=== PATIENT | male | born 1990 | race Caucasian/White ===

== ENCOUNTER 2017-03-26 19:37 | Emergency (ER) | payer SELFPAY ==
[~2017-03-26] VITALS: Ht 180.3 cm; Wt 77.1 kg
[~2017-03-26 19:37] MED LIST: CEPHALEXIN500 MG PO; NAPROSYN500 MG PO; NORCO 5-325 TA1 EACH PO; PSEUDOEPHEDRINE60 MG PO; ZITHROMAX250 MG PO
[2017-03-26] MEDS ORDERED: NORCO 5-325 TA1 EACH PO (21:22)
[2017-03-26] MEDS ORDERED: NAPROXEN500 MG PO (21:22)
== END 2017-03-26 21:41 | disposition home or self-care (01) ==
LOC: ED 19:37
DX: S29.012A Strain of muscle and tendon of back wall of thorax, initial encounter (principal); F17.200 Nicotine dependence, unspecified, uncomplicated; Z88.1 Allergy status to other antibiotic agents; X58.XXXA Exposure to other specified factors, initial encounter; Y93.44 Activity, trampolining
CPT/HCPCS: 71101; 99283

== ENCOUNTER 2018-01-25 12:59 | Emergency (ER) | payer MEDICAID ==
[~2018-01-25] VITALS: Ht 180.3 cm; Wt 77.1 kg
[~2018-01-25 12:59] MED LIST changes: +NAPROXEN500 MG PO
[2018-01-25] MEDS ORDERED: ZITHROMAX250 MG PO (14:32)
== END 2018-01-25 14:50 | disposition home or self-care (01) ==
LOC: ED 12:59
DX: J02.9 Acute pharyngitis, unspecified (principal); F17.200 Nicotine dependence, unspecified, uncomplicated; Z88.0 Allergy status to penicillin
CPT/HCPCS: 99283

== ENCOUNTER 2018-01-28 16:38 | Emergency (ER) | payer MEDICAID ==
[~2018-01-28] VITALS: Ht 180.3 cm; Wt 77.1 kg
[2018-01-28] MEDS ORDERED: KEFLEX500 MG PO (16:45)
== END 2018-01-28 16:49 | disposition home or self-care (01) ==
LOC: ED 16:38
DX: J02.9 Acute pharyngitis, unspecified (principal)

== ENCOUNTER 2018-02-16 16:13 | Emergency (ER) | payer MEDICAID ==
[~2018-02-16] VITALS: Ht 180.3 cm; Wt 77.1 kg
[~2018-02-16 16:13] MED LIST changes: +KEFLEX500 MG PO
[2018-02-16] MEDS ORDERED: CLINDAMYCIN HC300 MG PO (18:57)
== END 2018-02-16 19:42 | disposition home or self-care (01) ==
LOC: ED 16:13
DX: J02.9 Acute pharyngitis, unspecified (principal); F17.200 Nicotine dependence, unspecified, uncomplicated; Z88.0 Allergy status to penicillin
CPT/HCPCS: 96372; 99283; J1100